=== PATIENT | female | born 1995 | race Hispanic/Latino ===

== ENCOUNTER 2024-12-28 18:27 | Emergency (ER) | payer SELFPAY ==
[2024-12-28] MEDS ORDERED: Acetaminophen 500 MG TAB ONE (19:34)
[2024-12-28 19:44] LABS: Glucose, Urine (Dipstick) 100 mg/dL (Negative); Leukocyte Negative (Negative); Protein, Urine (Dipstick) Trace mg/dL (Neg-Trace); Specific Gravity, Urine 1.020 (1.005-1.030)
[2024-12-28 19:46] LABS: Pregnancy Test - Urine (BHCG) Negative (Negative); Pregu Control Background? CLEAR/WHITE (CLR/WHITE); Pregu Control Bar Appear? YES (CONTROL BAR)
[2024-12-28 19:48] LABS: Bacteria/HPF Rare-Few HPF (None Seen); CAUTI Indications for Culture Acute Hematuria; RBC/HPF 0-3 HPF (0-3); Urine Culture Reflex No No; WBC/HPF 0-3 HPF (0-3)
== END 2024-12-28 20:20 | disposition home or self-care (01) ==
LOC: MADERS 18:27
DX: S39.012A Strain of muscle, fascia and tendon of lower back, initial encounter (principal); X50.1XXA Overexertion from prolonged static or awkward postures, initial encounter
CPT/HCPCS: 81001; 81025; 99283

== ENCOUNTER 2025-01-15 17:02 | Emergency (ER) | payer SELFPAY ==
[2025-01-15 17:45] LABS: Glucose, Urine (Dipstick) Negative (Negative); Leukocyte Negative (Negative); Protein, Urine (Dipstick) Trace mg/dL (Neg-Trace); Specific Gravity, Urine 1.025 (1.005-1.030)
[2025-01-15 17:52] LABS: Bacteria/HPF 1+ HPF (None Seen); CAUTI Indications for Culture Pelvic or flank pain; Pregnancy Test - Urine (BHCG) Negative (Negative); Pregu Control Background? CLEAR/WHITE (CLR/WHITE); Pregu Control Bar Appear? YES (CONTROL BAR); RBC/HPF 0-3 HPF (0-3); WBC/HPF 0-3 HPF (0-3)
[2025-01-15 17:53] LABS: Urine Culture Reflex No No
[2025-01-15] MEDS ORDERED: Ketorolac Tromethamine 30 MG (1 mL) VIAL ONE (18:14)
[2025-01-15 18:24] LABS: #Basophils 0.1 thou/uL (0.0-0.2); #Eosinophils 0.2 thou/uL (0.0-0.7); #Lymphocytes 2.0 thou/uL (1.20-3.40); #Monocytes 0.4 thou/uL (0.11-0.59); #Neutrophils 5.5 thou/uL (1.40-6.50); %Basophils 0.7 % (0.0-1.0); %Eosinophils 3.0 % (0.0-10.0); %Lymphocytes 24.0 % (21.0-51.0); %Monocytes 5.2 % (0.0-10.0); %Neutrophils 67.1 % (42.0-75.0); Hematocrit 39.4 % (36.0-47.0); Hemoglobin 13.1 g/dL (12.0-16.0); Mean Corpuscular Hemoglobin 29.8 pg (27.0-31.0); Mean Corpuscular Volume 89.4 fl (78.0-98.0); Platelet Count 223 10x3/uL (130-400); Red Blood Cell (RBC) Count 4.40 mill/uL (4.20-5.40); White Blood Cell (WBC) Count 8.1 10x3/uL (4.8-10.8)
[2025-01-15 18:36] LABS: ALT (SGPT) 14 U/L (Less than 34); AST (SGOT) 24 U/L (11-34); Albumin 4.5 g/dL (3.1-4.5); Alkaline Phosphatase 63 U/L (40-110); Anion Gap 17 mmol/L (10-20); BUN (Urea Nitrogen) 10 mg/dL (7.0-18.7); Bilirubin, Total 0.2 mg/dL (0.3-1.2); Calc. Creatinine Clearance 0 mL/min (70-130); Calcium 8.9 mg/dL (7.8-10.44); Carbon Dioxide 20 mmol/L (22-29); Chloride 108 mmol/L (98-107); Globulin 3.4 g/dL (2.4-3.5); Glucose 84 mg/dL (70-105); Lipase 38 U/L (8-78); Potassium 3.8 mmol/L (3.5-5.1); Sodium 141 mmol/L (136-145)
== END 2025-01-15 19:24 | disposition home or self-care (01) ==
LOC: MADERS 17:02
DX: N83.11 Corpus luteum cyst of right ovary (principal); R82.71 Bacteriuria; F17.210 Nicotine dependence, cigarettes, uncomplicated; Z75.8 Other problems related to medical facilities and other health care
CPT/HCPCS: 74177; 80053; 81001; 81025; 83690; 85025; 96374; J1885; J7120